=== PATIENT | female | born 1960 | race Caucasian/White ===

== ENCOUNTER 2025-10-05 12:31 | Outpatient (REF) | payer MEDICARE, MEDICAID, SELFPAY ==
--- OUTSIDE RECORDS SUMMARY | 2024-05-13 05:00 | XMS_ITS ---
Author Organization [facility] [place] Address [address] [place] [address] Care Team Providers Care Dining Room Host Name Role Phone Steve Dewey DO Primary Care Provider Ashia Duarte Unavailable [phone] [facility] f/u Encounters Encounter Location Date Provider Diagnosis [facility] [address] [place] [address] 05/13/2024 Ashia Robison Plan Of Treatment No Information Progress Notes * Beulah EWING ADOB:1960 (65 yo F)Acc No.[id number]:05/13/2024 UNLOCKED PROGRESS NOTE Progress Note Patient: Brigida MURDOCKAna Beulah Love :?Ashia Robison NPDOB:1960???Age:63 Y ???Sex:FemaleDate:05/13/2024hone:[phone]: [address], [place], [place]Ash:Steve Dewey DO Subjective: * Chief Complaints: * [address] [facility] f/u. * Medical History: Objective: * Vitals: Assessment: Plan: * Treatment: * * Electronic signature of Ashia Robison APRN NP-C, [id number] on 10/05/2025 at 12:37 PM ESTSign off status: PendingVisit Status:?CANC (Cancelled) * Provider: Brigida Robison NP Date: 0 05/13/2024 Generated for Printing/Faxing/eTransmitting on:?10/05/2025 12:37 PM EST
--- OUTSIDE RECORDS SUMMARY | 2025-03-28 19:00 | XMS_ITS | Continuity of Care Document ---
Author Organization [facility] Address [address] [facility] [place] [address] Phone Care Team Providers Care Product Applications Scientist Name Role Phone Thad Cabral Unavailable Unavailable Procedures Procedure Date SUBSEQUENT HOSPITAL CARE SUBSEQUENT HOSPITAL CARE SUBSEQUENT HOSPITAL CARE Advance Directives Directive Yes / No Effective Date File Name No Information Encounters Encounter Description Practice Location Reason(s) For Visit Diagnoses Date Provider Encounter Disposition SUBSEQUENT HOSPITAL CARE [facility], [address] [place] [address] B, [place], [place], [id number], [place] tel:[phone] [facility] IP No Information 5 Marianna Oneil. [address] [facility] [address], [place], [place], [id number], [place]. tel:[phone] [address] [place] [address] [facility], [address] [place] [address] B, [place], [place], [id number], [place] tel:[phone] [facility] IP No Information 5 Catrina Shea. [address] [facility] [address], [place], [place], [id number], [place]. tel:[phone] [address] [place] [address] [facility], [address] [place] [address] B, [place], [place], [id number], [place] tel:[phone] [facility] IP No Information 5 Yves GONGORA Blaine. [address] [facility], [address], [place], [place], [id number], [place]. tel:[phone] [address] [place] [address] [facility], [address] [place] [address] B, [place], [id number], [place] tel:[phone] [place] No Information Mar-0 5 Friend DIRECTOR DIGITAL STRATEGY-YARD SPECIALIST Sonia. [address] [facility] [address], [place], [place], [address], [place]. tel:[phone] [facility], [address] [place] [address] [address], [place], [place], [address], [place] tel:[phone] [facility] IP No Information Clement-0 5 Marylou Alaniz. [address] [facility] [address], [place], [place], [address], [place]. tel:[phone] [address] [place] [address], [address] [place] [address] [address], [place], [place], [address], [place] tel:[phone] [facility] IP No Information 0 5 Yves Valladares. [address] [facility], [address], [place], [place], [address], [place]. tel:[phone] [address] [place] [address], [address] [place] [address] [address], [place], [place], [address], [place] tel:[phone] [facility] IP No Information 0 5 Marylou Alaniz. [address] [facility] [address], [place], [place], [address], [place]. tel:[phone] [address] [place] [address], [address] [place] [address] [address], [place], [place], [address], [place] tel:[phone] [place] No Information 5 Friend DIRECTOR DIGITAL STRATEGY-YARD SPECIALIST Sonia. [address] [facility] [address], [place], [place], [address], [place]. tel:[phone] [address] [place] [address], [address] [place] [address] [address], [place], [place], [address], [place] tel:[phone] [place] No Information 5 Friend DIRECTOR DIGITAL STRATEGY-YARD SPECIALIST Sonia. [address] [facility] [address], [place], [place], [address], [place]. tel:[phone] [address] [place] [address], [address] [place] [address] [address], [place], [place], [address], [place] tel:[phone] [place] No Information May-1 5-202 5 Friend DIRECTOR DIGITAL STRATEGY-YARD SPECIALIST Sonia. [address], [place], [place], [address], [place]. tel:[phone] [address] [place] [address], [address] [place] [address] [address], [place], [place], [address], [place] tel:[phone] [place] No Information May-1 3-202 5 Katrina Jin. [address], [address], [place], [place], [address], [place]. tel:[phone] [address] [place] [address], [address] [place] [address] [address], [place], [place], [address], [place] tel:[phone] [place] No Information May-0 8- 5 Friend DIRECTOR DIGITAL STRATEGY-YARD SPECIALIST Sonia. [address], [place], [place], [address], [place]. tel:[phone] [address] [place] [address], [address] [place] [address] [address], [place], [address], [place] tel:[phone] [facility] No Information May-0 2-202 5 Luisito Damico. [address], [address], [place], [place], [address], [place]. tel:[phone] [address] [place] [address], [address] [place] [address] [address], [place], [address], [place] tel:[phone] [place] No Information May-0 1-202 5 Friend DIRECTOR DIGITAL STRATEGY-YARD SPECIALIST Sonia. [address], [place], [place], [address], [place]. tel:[phone] [address] [place] [address], [address] [place] [address] [address], [place], [place], [address], [place] tel:[phone] [place] No Information Apr-2 2-202 5 Katrina Jin. [address], [address], [place], [place], [address], [place]. tel:[phone] [address] [place] [address], [address] [place] [address] [address], [place], [address], [place] tel:[phone] [facility] IP No Information Apr-1 7-202 5 Marianna Oneil. [address] [facility], [address], [place], [address], [place]. tel:[phone] [address] [place] [address], [address] [place] [address] [address], [place], [place], [address], [place] tel:[phone] [facility] IP No Information Jan-1 6- 5 Yves Valladares. [address] [facility], [address], [place], [place], [address], [place]. tel:[phone] [address] [place] [address], [address] [place] [address] [address], [place], [place], [address], [place] tel:[phone] [place] No Information Apr-0 8-202 5 Katrina Jin. [address] [facility] [address], [place], [place], [address], [place]. tel:[phone] [address] [place] [address] [employer] [facility], [address] [place] [address] [address], [place], [place], [address], [place] tel:[phone] [place] No Information Apr-0 3-202 5 Friend DIRECTOR DIGITAL STRATEGY-YARD SPECIALIST Sonia. [address] [facility] [address], [place], [place], [address], [place]. tel:[phone] [address] [place] [address], [address] [place] [address] [address], [place], [place], [address], [place] tel:[phone] [place] No Information Mar-2 7-202 5 Friend DIRECTOR DIGITAL STRATEGY-YARD SPECIALIST Sonia. [address] [facility] [address], [place], [place], [address], [place]. tel:[phone] [address] [place] [address], [address] [place] [address] [address], [place], [address], [place] tel:[phone] [place] No Information Mar-2 0-202 5 Friend DIRECTOR DIGITAL STRATEGY-YARD SPECIALIST Sonia. [address], [place], [place], [address], [place]. tel:[phone] [address] [place] [address], [address] [place] [address] [address], [place], [place], [address], [place] tel:[phone] [place] No Information Mar-1 3-202 5 Friend DIRECTOR DIGITAL STRATEGY-YARD SPECIALIST Sonia. [address], [place], [place], [address], [place]. tel:[phone] [address] [place] [address], [address] [place] [address] [address], [place], [place], [address], [place] tel:[phone] [place] No Information Mar-1 1- 5 Katrina Jin. [facility] [address], [place], [place], [address], [place]. tel:[phone] [address] [place] [address] [facility], [address] [place] [address] [address], [place], [address], [place] tel:[phone] [place] No Information Mar-0 6-202 5 Friend DIRECTOR DIGITAL STRATEGY-YARD SPECIALIST Sonia. [address], [place], [place], [address], [place]. tel:[phone] [address] [place] [address] [employer] [facility], [address] [place] [address] [address], [place], [place], [address], [place] tel:[phone] [place] No Information Feb-2 7- 5 Friend DIRECTOR DIGITAL STRATEGY-YARD SPECIALIST Sonia. [address], [place], [place], [address], [place]. tel:[phone] [address] [place] [address], [address] [place] [address] [address], [place], [place], [address], [place] tel:[phone] [place] No Information Feb-2 0-202 5 Friend DIRECTOR DIGITAL STRATEGY-YARD SPECIALIST Sonia. [address], [place], [place], [address], [place]. tel:[phone] [address] [place] [address], [address] [place] [address] B, [place], [address], [place] tel:[phone] [place] No Information 5 Friend DIRECTOR DIGITAL STRATEGY-YARD SPECIALIST Sonia. [address], [place], [address], [place]. tel:[phone] [address] [place] [address], [address] [place] [address] [address], [place], [address], [place] tel:[phone] [place] No Information 5 Friend DIRECTOR DIGITAL STRATEGY-YARD SPECIALIST Sonia. [address], [place], [address], [place]. tel:[phone] [address] [place] [address] [facility], [address] [place] [address] [address], [place], [address], [place] tel:[phone] [place] No Information 5 Friend DIRECTOR DIGITAL STRATEGY-YARD SPECIALIST Sonia. [address], [place], [place], [address], [place]. tel:[phone] [address] [place] [address] [facility], [address] [place] [address] [address], [place], [address], [place] tel:[phone] [place] No Information 5 Friend DIRECTOR DIGITAL STRATEGY-YARD SPECIALIST Sonia. [address] [facility] [address], [place], [address], [place]. tel:[phone] [address] [place] [address] [facility], [address] [place] [address] [address], [place], [place], [address], [place] tel:[phone] [place] No Information 5 Katrina Jin. [address] [facility], [address], [place], [place], [address], [place]. tel:[phone] [address] [place] [address] [facility], [address] [place] [address] [address], [place], [place], [address], [place] tel:[phone] [place] No Information 5 Friend DIRECTOR DIGITAL STRATEGY-YARD SPECIALIST Sonia. [address], [place], [place], [address], [place]. tel:[phone] [address] [place] [address], [address] [place] [address] [address], [place], [place], [address], [place] tel:[phone] [place] No Information Dec-2 6-202 4 Friend DIRECTOR DIGITAL STRATEGY-YARD SPECIALIST Sonia. [address], [place], [place], [address], [place]. tel:[phone] [address] [place] [address], [address] [place] [address] [address], [place], [place], [address], [place] tel:[phone] [place] No Information Dec-1 9-202 4 Friend DIRECTOR DIGITAL STRATEGY-YARD SPECIALIST Sonia. [address], [place], [place], [address], [place]. tel:[phone] [address] [place] [address], [address] [place] [address] [address], [place], [place], [address], [place] tel:[phone] [place] No Information Dec-1 2-202 4 Friend DIRECTOR DIGITAL STRATEGY-YARD SPECIALIST Sonia. [address], [place], [place], [address], [place]. tel:[phone] [address] [place] [address] [employer] [facility], [address] [place] [address] [address], [place], [place], [address], [place] tel:[phone] [place] No Information Dec-1 0-202 4 Katrina Jin. [facility], [address], [place], [place], [address], [place]. tel:[phone] [address] [place] [address] [facility], [address] [place] [address] [address], [place], [place], [address], [place] tel:[phone] [place] No Information Dec-0 5-202 4 Friend DIRECTOR DIGITAL STRATEGY-YARD SPECIALIST Sonia. [address], [place], [place], [address], [place]. tel:[phone] [address] [place] [address], [address] [place] [address] [address], [place], [place], [address], [place] tel:[phone] [place] No Information Nov-2 5-202 4 Friend DIRECTOR DIGITAL STRATEGY-YARD SPECIALIST Sonia. [address] [address], [place], [place], [address], [place]. tel:[phone] [address] [place] [address], [address] [place] [address] [address], [place], [place], [address], [place] tel:[phone] Patrice D[place]ior No Information Nov-0 7-202 4 Friend DIRECTOR DIGITAL STRATEGY-YARD SPECIALIST Sonia. [address] [address], [place], [place], [address], [place]. tel:[phone] [address] [place] [address], [address] [place] [address] [address] , [place], [place], [address], [place] tel:[phone] Pat[place] Doshior Skilled No Information Nov-0 5-202 4 Friend DIRECTOR DIGITAL STRATEGY-YARD SPECIALIST Sonia. [address] [address], [place], [place], [address], [place]. tel:[phone] [address] [place] [address], [address] [place] [address] [address], [place], [place], [address], [place] tel:[phone] Patrice Meade Skilled No Information Nov-0 3-202 4 Friend DIRECTOR DIGITAL STRATEGY-YARD SPECIALIST Sonia. [address] [address], [place], [place], [address], [place]. tel:[phone] [facility] Family History Family Member Type Diagnosis Age At Onset No Information Payers Payer name Insurance type Identifiers Authorization(s) Com ments Medicare MB iber ID: [id number] Name: Coverage Status Eligibility Check on: UnknownRelationship to Subscriber: selfPayer Address: [address] , [place], [place], [id number] Phone: [phone] Sloane CI er ID: [id number] Name: Coverage Status Eligibility Check on: UnknownRelationship to Subscriber: selfPayer Address: [address], [place], [place], [id number], [place]ayer Phone: [phone] Medicaid MC riber ID: [id number] Name: Coverage Status Eligibility Check on: UnknownRelationship to Subscriber: selfPayer Address: [facility] [address], [place], [place], [id number] Phone: Social History Type Description Quantity Date Captured Comments Sex Female Smoking Status No Information Current Gender Female (finding) Chief Complaint And Reason For Visit No Information History Of Present Illness Encounter Date Complaint History Of Prese nt Illness No Information Functional Status Date Description Comments No Information Instructions Date Instruction Additional Infor mation No Information Assessments Type Assessment Date No Information
--- OUTSIDE RECORDS SUMMARY | 2025-05-19 09:00 | XMS_ITS ---
Author Organization [facility] [place] Address [address] [place] [address] Care Team Providers Care Delimber Operator Name Role Phone Steve Dewey DO Primary Care Provider Dejan Blanton Unavailable [phone] REASON FOR VISIT Acute Resp Failure Encounters Encounter Location Date Provider Diagnosis [facility] [address] [place] [address] 05/19/2025 Dejan Bay Plan Of Treatment No Information Progress Notes * Beulah EWING ADOB:1960 (65 yo F)Acc No.[id number]:05/19/2025 UNLOCKED PROGRESS NOTE Progress Note Patient: Beulah PAVON :?Dejan Bay NPDOB:1960???Age:64 Y ???Sex:FemaleDate:05/19/2025Phone:[phone]: [address], [place], [place]Kov:Steve Dewey DO Subjective: * Chief Complaints: * 1 . Acute Resp Failure. * Medical History: Objective: * Vitals: Assessment: Plan: * Treatment: * * Electronic signature of Dejan Bay NP, SANITATION INSPECTOR.TECHNICAL SUPPORT PROFESSIONAL.[id number] on 10/05/2025 at 12:38 PM ESTSign off status: PendingVisit Status:?N/S N/C (No Show/No Charge) * Provider: Beth Bay NP Date: 0 05/19/2025 Generated for Printing/Faxing/eTransmitting on:?10/05/2025 12:38 PM EST
--- OUTSIDE RECORDS SUMMARY | 2025-10-05 12:38 | XMS_ITS | Patient Health Record ---
Author Organization [facility] Address [address] [facility] [address] [place] [address] Care Team Providers Care Maintenance Chief Name Role Phone JUAN MANUEL YOO Unavailable [phone] JOSE ROCK Unavailable [phone] Reason For Referral No Information Problems Problem Type SNOMED Code ICD Code Onset Dates Problem Status W/U Status Risk Notes Problem Obstructive sleep ap skylar syndrome (disorder) (72214427) Obstructive sleep apnea (adult) (pediatric) (G47.33) ActiveconfirmedProblemChronic obstructive pulmonary disease (04571525)Chronic obstructive pulmonary disease, unspecified (J44.9)ActiveconfirmedProblemChronic respiratory failure (88809014)Chronic respiratory failure with hypoxia (J96.11) ActiveconfirmedProblemChronic respiratory failure (89560008)Chronic respiratory failure with hypercapnia (J96.12)ActiveconfirmedProblemExtreme obesity with alveolar hypoventilation (845791872)Morbid obesity with alveolar hypoventilation (E66.2)Activeconfirmed Encounters Encounter Location Date Provider Diagnosis [place] [facility] [address] [place] [id number] 12/24/2024 JOSE ROCK Chronic respiratory failure with hypoxia J96.11 ; Chronic respiratory failure with hypercapnia J96.12 ; Obstructive sleep apnea (adult) (pediatric) G47.33 ; Morbid obesity with alveolar hypoventilation E66.2 and Chronic obstructive pulmonary disease, unspecified J44.9 [place] [facility] [address] [place] [id number] 01/01/2025 JOSE ROCK Chronic respiratory failure with hypoxia J96.11 ; Chronic respiratory failure with hypercapnia J96.12 ; Obstructive sleep apnea (adult) (pediatric) G47.33 ; Morbid obesity with alveolar hypoventilation E66.2 and Chronic obstructive pulmonary disease, unspecified J44.9 [place] [facility] [address] [place], [place] [id number] 01/02/2025 JUAN MANUEL FREDO Chronic respiratory failure with hypoxia J96.11 ; Chronic respiratory failure with hypercapnia J96.12 ; Obstructive sleep apnea (adult) (pediatric) G47.33 ; Morbid obesity with alveolar hypoventilation E66.2 and Chronic obstructive pulmonary disease, unspecified J44.9 [place] [facility] [address] [place], [place] [id number] 01/07/2025 JOSE PRANAV Chronic respiratory failure with hypoxia J96.11 ; Chronic respiratory failure with hypercapnia J96.12 ; Obstructive sleep apnea (adult) (pediatric) G47.33 ; Morbid obesity with alveolar hypoventilation E66.2 and Chronic obstructive pulmonary disease, unspecified J44.9 [place] [facility] [address] [place] [id number] 01/14/2025 JUAN MANUEL FREDO Chronic respiratory failure with hypoxia J96.11 ; Chronic respiratory failure with hypercapnia J96.12 ; Obstructive sleep apnea (adult) (pediatric) G47.33 ; Morbid obesity with alveolar hypoventilation E66.2 and Chronic obstructive pulmonary disease, unspecified J44.9 [place] [facility] [address] [place] [id number] 01/21/2025 JOSE PRANAV Chronic respiratory failure with hypoxia J96.11 ; Chronic respiratory failure with hypercapnia J96.12 ; Obstructive sleep apnea (adult) (pediatric) G47.33 ; Morbid obesity with alveolar hypoventilation E66.2 and Chronic obstructive pulmonary disease, unspecified J44.9 [place] [facility] [address] [place] [id number] 01/28/2025 JOSE PRANAV Chronic respiratory failure with hypoxia J96.11 ; Chronic respiratory failure with hypercapnia J96.12 ; Obstructive sleep apnea (adult) (pediatric) G47.33 ; Morbid obesity with alveolar hypoventilation E66.2 and Chronic obstructive pulmonary disease, unspecified J44.9 [place] [facility] [address] [place], [place] [id number] 01/30/2025 JUAN MANUEL FREDO Chronic respiratory failure with hypoxia J96.11 ; Chronic respiratory failure with hypercapnia J96.12 ; Obstructive sleep apnea (adult) (pediatric) G47.33 ; Morbid obesity with alveolar hypoventilation E66.2 and Chronic obstructive pulmonary disease, unspecified J44.9 [place] [facility] [address] [place] [id number] 02/05/2025 JUAN MANUEL FREDO Chronic respiratory failure with hypoxia J96.11 ; Chronic respiratory failure with hypercapnia J96.12 ; Obstructive sleep apnea (adult) (pediatric) G47.33 ; Morbid obesity with alveolar hypoventilation E66.2 and Chronic obstructive pulmonary disease, unspecified J44.9 [place] [facility] [address] [place] [id number] 02/21/2025 JOSE PRANAV Chronic respiratory failure with hypoxia J96.11 ; Chronic respiratory failure with hypercapnia J96.12 ; Obstructive sleep apnea (adult) (pediatric) G47.33 ; Morbid obesity with alveolar hypoventilation E66.2 and Chronic obstructive pulmonary disease, unspecified J44.9 [place] [facility] [address] [place], [place] [id number] 02/24/2025 JUAN MANUEL FREDO Chronic respiratory failure with hypoxia J96.11 ; Chronic respiratory failure with hypercapnia J96.12 ; Obstructive sleep apnea (adult) (pediatric) G47.33 ; Morbid obesity with alveolar hypoventilation E66.2 and Chronic obstructive pulmonary disease, unspecified J44.9 [place] [facility] [address] [place], [place] [id number] 02/28/2025 JOSE PRANAV Chronic respiratory failure with hypoxia J96.11 ; Chronic respiratory failure with hypercapnia J96.12 ; Obstructive sleep apnea (adult) (pediatric) G47.33 ; Morbid obesity with alveolar hypoventilation E66.2 and Chronic obstructive pulmonary disease, unspecified J44.9 [place] [facility] [address] [place] [id number] 03/04/2025 JOSE PRANAV Chronic respiratory failure with hypoxia J96.11 ; Chronic respiratory failure with hypercapnia J96.12 ; Obstructive sleep apnea (adult) (pediatric) G47.33 ; Morbid obesity with alveolar hypoventilation E66.2 and Chronic obstructive pulmonary disease, unspecified J44.9 [place] [facility] [address] [place] [id number] 03/24/2025 JOSE PRANAV Chronic respiratory failure with hypoxia J96.11 ; Chronic respiratory failure with hypercapnia J96.12 ; Obstructive sleep apnea (adult) (pediatric) G47.33 ; Morbid obesity with alveolar hypoventilation E66.2 and Chronic obstructive pulmonary disease, unspecified J44.9 Assessments Encounter Date Diagnosis (ICD Code) Assessment Notes Treatment Notes Treatment Clinical Notes Section Notes 12/24/2024 Chronic respiratory failure with hypoxia (ICD-10 - J96.11) 12/24/2024hronic respiratory failure with hypercapnia (ICD-10 - J96.12) 5Chronic respiratory failure with hypoxia (ICD-10 - J96.11)01/02/2025 Chronic respiratory failure with hypoxia (ICD-10 - J96.11)01/07/2025hronic respiratory failure with hypoxia (ICD-10 - J96.11)5Chronic respiratory failure with hypoxia (ICD-10 - J96.11)5Chronic respiratory failure with hypoxia (ICD-10 - J96.11)5Chronic respiratory failure with hypoxia (ICD-10 - J96.11)5Chronic respiratory failure with hypoxia (ICD-10 - J96.11)5Chronic respiratory failure with hypoxia (ICD-10 - J96.11) 02/21/2025hronic respiratory failure with hypoxia (ICD-10 - J96.11)02/24/2025 Chronic respiratory failure with hypoxia (ICD-10 - J96.11)02/28/2025hronic respiratory failure with hypoxia (ICD-10 - J96.11)5Chronic respiratory failure with hypoxia (ICD-10 - J96.11)5Chronic respiratory failure with hypoxia (ICD-10 - J96.11)5Chronic respiratory failure with hypercapnia (ICD-10 - J96.12)03/04/2025hronic respiratory failure with hypercapnia (ICD-10 - J96.12)5Chronic respiratory failure with hypercapnia (ICD-10 - J96.12)5Chronic respiratory failure with hypercapnia (ICD-10 - J96.12) 5Chronic respiratory failure with hypercapnia (ICD-10 - J96.12) 5Chronic respiratory failure with hypercapnia (ICD-10 - J96.12) 01/30/2025hronic respiratory failure with hypercapnia (ICD-10 - J96.12) 01/28/2025hronic respiratory failure with hypercapnia (ICD-10 - J96.12) 01/21/2025hronic respiratory failure with hypercapnia (ICD-10 - J96.12) 01/14/2025hronic respiratory failure with hypercapnia (ICD-10 - J96.12) 5Chronic respiratory failure with hypercapnia (ICD-10 - J96.12) 01/02/2025hronic respiratory failure with hypercapnia (ICD-10 - J96.12) 5Chronic respiratory failure with hypercapnia (ICD-10 - J96.12) 12/24/2024Obstructive sleep apnea (adult) (pediatric) (ICD-10 - G47.33) 12/24/2024Morbid obesity with alveolar hypoventilation (ICD-10 - E66.2) 01/01/2025Obstructive sleep apnea (adult) (pediatric) (ICD-10 - G47.33) 01/02/2025Obstructive sleep apnea (adult) (pediatric) (ICD-10 - G47.33) 01/07/2025Obstructive sleep apnea (adult) (pediatric) (ICD-10 - G47.33) 01/14/2025Obstructive sleep apnea (adult) (pediatric) (ICD-10 - G47.33) 01/21/2025Obstructive sleep apnea (adult) (pediatric) (ICD-10 - G47.33) 01/28/2025Obstructive sleep apnea (adult) (pediatric) (ICD-10 - G47.33) 01/30/2025Obstructive sleep apnea (adult) (pediatric) (ICD-10 - G47.33) 02/05/2025Obstructive sleep apnea (adult) (pediatric) (ICD-10 - G47.33) 02/21/2025Obstructive sleep apnea (adult) (pediatric) (ICD-10 - G47.33) 02/24/2025Obstructive sleep apnea (adult) (pediatric) (ICD-10 - G47.33) 02/28/2025Obstructive sleep apnea (adult) (pediatric) (ICD-10 - G47.33) 03/04/2025Obstructive sleep apnea (adult) (pediatric) (ICD-10 - G47.33) 03/24/2025Obstructive sleep apnea (adult) (pediatric) (ICD-10 - G47.33) 03/24/2025Morbid obesity with alveolar hypoventilation (ICD-10 - E66.2) 03/04/2025Morbid obesity with alveolar hypoventilation (ICD-10 - E66.2) 02/28/2025Morbid obesity with alveolar hypoventilation (ICD-10 - E66.2) 02/24/2025Morbid obesity with alveolar hypoventilation (ICD-10 - E66.2) 02/21/2025Morbid obesity with alveolar hypoventilation (ICD-10 - E66.2) 02/05/2025Morbid obesity with alveolar hypoventilation (ICD-10 - E66.2) 01/30/2025Morbid obesity with alveolar hypoventilation (ICD-10 - E66.2) 01/28/2025Morbid obesity with alveolar hypoventilation (ICD-10 - E66.2) 01/21/2025Morbid obesity with alveolar hypoventilation (ICD-10 - E66.2) 01/14/2025Morbid obesity with alveolar hypoventilation (ICD-10 - E66.2) 01/07/2025Morbid obesity with alveolar hypoventilation (ICD-10 - E66.2) 01/02/2025Morbid obesity with alveolar hypoventilation (ICD-10 - E66.2) 12/24/2024hronic obstructive pulmonary disease, unspecified (ICD-10 - J44.9) 01/01/2025Morbid obesity with alveolar hypoventilation (ICD-10 - E66.2) 01/01/2025hronic obstructive pulmonary disease, unspecified (ICD-10 - J44.9) 01/02/2025hronic obstructive pulmonary disease, unspecified (ICD-10 - J44.9) 03/25/2025Chronic obstructive pulmonary disease, unspecified (ICD-10 - J44.9) 5Chronic obstructive pulmonary disease, unspecified (ICD-10 - J44.9) 5Chronic obstructive pulmonary disease, unspecified (ICD-10 - J44.9) 5Chronic obstructive pulmonary disease, unspecified (ICD-10 - J44.9) 5Chronic obstructive pulmonary disease, unspecified (ICD-10 - J44.9) 5Chronic obstructive pulmonary disease, unspecified (ICD-10 - J44.9) 5Chronic obstructive pulmonary disease, unspecified (ICD-10 - J44.9) 5Chronic obstructive pulmonary disease, unspecified (ICD-10 - J44.9) 5Chronic obstructive pulmonary disease, unspecified (ICD-10 - J44.9) 5Chronic obstructive pulmonary disease, unspecified (ICD-10 - J44.9) 5Chronic obstructive pulmonary disease, unspecified (ICD-10 - J44.9) 12/24/2024OtherSasha in collaboration and discussed plan of care with Dr. Juan Manuel Yoo01/01/2025OtherSasha in collaboration and discussed plan of care with Dr. Juan Manuel Yoo01/07/2025Elin in collaboration and discussed plan of care with Dr. Juan Manuel Yoo01/21/2025Elin in collaboration and discussed plan of care with Dr. Juan Manuel Yoo01/28/2025Elin in collaboration and discussed plan of care with Dr. Juan Manuel Yoo02/21/2025Elin in collaboration and discussed plan of care with Dr. Juan Manuel Yoo02/28/2025Elin in collaboration and discussed plan of care with Dr. Juan Manuel Yoo03/04/2025Elin in collaboration and discussed plan of care with Dr. Juan Manuel Yoo03/24/2025Elin in collaboration and discussed plan of care with Dr. Juan Manuel Yoo Plan Of Treatment No Information Insurance Providers Payer Name Payer Address Payer Phone Subscriber Number Group Number Insured Name Patient Relationship to Insured Coverage Start Date Coverage End Date Medicare [place] [place] [address] [place] [address] [id number] [place] - patient is the insuredAnthem BCBS of [place]PO [address] [place] [id number], JuliaSelf - patient is the [place]icaid [place] [phone] [id number], JuliaSelf - patient is the insured
--- OUTSIDE RECORDS SUMMARY | 2025-10-05 12:39 | XMS_ITS | Patient Health Record ---
Author Organization [facility] [place] Address [address] [place] [address] Care Team Providers Care Document Control Specialist Name Role Phone Zuleima Steve SHAVER Primary Care Provider Dejan Blanton Unavailable [phone] Allergies Allergen (clinical drug ingredient) Drug/Non Drug Allergy documented on EMR Reaction Allergy Type Onset Date Status PenicillinUnknownDrug AllergyActive Results Component Value Reference Range Notes XR CHEST PORTABLE Reviewed date:04/09/2025 06:50:05 AM Interpretation: Performing Lab: Notes/Report: EXAMINATION: Performed at: [facility] [address] [facility] [facility] [id number] [facility] Reviewed date:10/22/2024 10:12:04 PM Interpretation: Performing Lab: Notes/Report: Radiology exam is complete. No Radiologist dictation. Please follow up with ordering provider. Performed at: [address] [id number] Reason For Referral Diagnosis 1 Urinary tract infect ion, site not specified (N39.0) Diagnosis 2 Urinary tract infect ion (N39.0) Referring Provider First Name Davin Referring Provider Last Name Mak blank Referring Provider Speciality Family Med frances Referred Organization [facility] Referred Provider Cale Leon Referred Address [address],[place], [place],[address], Referred Provider Specialty Urology General Notes Carolin Koch 04/2025 11:54:24 AM >left Zee davidson Rylie 11/14/2024 03:19:16 PM >final msg Referral Priority Routine Medications Medication SIG (Take, Route, Frequency, Duration) Notes Start Date End Date Status Docusate Sodium 100 MG 1 capsule as need ed Orally Once a day; Duration: 30 day(s) ActiveSertraline HCl 150 MG3 tablets Orally DailyActiveBaclofen 20 MGtake 1 tablet by mouth every 6 hours Orally QIDActiveoxyBUTYnin Chloride 5 MG1 tablet Orally TIDActiveAcetaminophen Extra Strength 500 MG1 tablet as needed Orally every 6 hrsActiveOndansetron 4 MG1 tablet on the tongue and allow to dissolve as needed Orally every 4 hrsActiveNystatin 448206 UNIT/GM1 application Externally Twice a dayActiveIsopto TearsActiveGabapentin 300 MG1 capsule oral QID; Duration: 30 ruek838 mg 2 BIDActiveFerrous Sulfate 325 MGas directed Orally ActiveFamotidine 20 MG1 tablet at bedtime as needed Orally Once a day; Duration: 30 day(s)ActiveWheelchair -power wheelchair - Daily; Duration: 365 daysMS with gait disability, due to leg weakness, need to be able to elevate legs daily. 01/24/2017ActiveMultivitamin -1 tablet Orally Once a day; Duration: 30 day(s) ActiveMotorized Scooter -as directed Dx: MS with gait disability due to leg weakness; need to be able to elevate legs Daily;Duration: 365 days01/18/2017 ActiveLipitor 40 MG1 tablet Orally Once a day; Duration: 30 day(s)Active Social History Tobacco Use: Social History Observation Description Date Details (start date - stop date) Never Smoker NA - NA Tobacco Use/Smoking Question Answer Notes Patient is a nonsmoker Section Notes: Resides at home with aide as sistance 3x per day Resides at home with aide as sistance 3x per day Resides at home with aide as sistance 3x per day Resides at home with aide as sistance 3x per day Problems Problem Type SNOMED Code ICD Code Onset Dates Problem Status W/U Status Risk Notes Problem Acute on chronic hyp oxemic and hypercapnic respiratory failure (disorder) (94836232726372) Acute and chronic respiratory failure with hypercapnia (J96.22) ActiveconfirmedProblemFunctional quadriplegia (769139043309982)Functional quadriplegia (R53.2)ActiveconfirmedProblemAtrial flutter (2687359)Atrial flutter (I48.92)ActiveconfirmedProblemHyperlipidemia (23834705)Hyperlipidemia (E78.5) ActiveconfirmedProblemMorbid obesity (646112704)Morbid obesity (E66.01)Active confirmedProblemObesity (963538872)Obesity (E66.9)ActiveconfirmedProblemCoronary artery disease (91205318)CAD (coronary artery disease) (I25.10)Activeconfirmed ProblemHypertension (65914328)HTN (hypertension) (I10)ActiveconfirmedProblem Hypothyroid (35924898)Hypothyroid (E03.9)ActiveconfirmedProblemEssential hypertension (13021756)Essential hypertension (I10)ActiveconfirmedProblem Depression (310535739)Depression (F32.9)ActiveconfirmedProblemUrinary incontinence (458956126)Urinary incontinence (R32)ActiveconfirmedProblem Diverticular disease of colon (469710753)Diverticulosis (K57.90)Activeconfirmed ProblemNeurogenic bladder (877868111)Neurogenic bladder (N31.9)Activeconfirmed ProblemNeuropathy (562385974)Neuropathy (G62.9)ActiveconfirmedProblem Hyperlipidaemia (39213825)HLD (hyperlipidemia) (E78.5)ActiveconfirmedProblem Obesity (393828176)Obesity, unspecified obesity severity, unspecified obesity type (E66.9)ActiveconfirmedProblemConstipation (36324362)Constipation (K59.00) ActiveconfirmedProblemMultiple sclerosis (17932994)MS (multiple sclerosis) (G35) ActiveconfirmedProblemOsteoarthritis of knee (299946947)Osteoarthritis of left knee (M17.9)ActiveconfirmedProblemAbnormal gait (22088554)Gait disturbance (R26.9)ActiveconfirmedProblemSeizure disorder (218281869)Seizure disorder (G40.909)ActiveconfirmedProblemMuscle spasm (03031866)Muscle spasm (M62.838) ActiveconfirmedProblemIron deficiency anemia (45939755)MARIA ELENA (iron deficiency anemia) (D50.9)ActiveconfirmedProblemMethicillin resistant Staphylococcus aureus (322271457)MRSA (methicillin resistant Staphylococcus aureus) (A49.02)Active confirmedProblemSuprapubic catheter (194442598)Suprapubic catheter (Z93.59) ActiveconfirmedProblemMajor depressive disorder (673447030)Major depressive disorder (F32.9)ActiveconfirmedProblemPulmonary hypertension (10311486)Pulmonary HTN (I27.20)ActiveconfirmedProblemNeurogenic dysfunction of the urinary bladder (715256059)Acontractile bladder (N31.9)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 Plan Of Treatment Pending Test Test Name Order Date CMP (COMPLETE METABOLIC PANEL) 8 CMP (COMPLETE METABOLIC PANEL) 9 CBC NO DIFF 01/10/2018 CBC WITH DIFF (EXP 08/2025) 10/18/2018 UA (REFLEX URINALYSIS TO CULTURE) 2018 UA (REFLEX URINALYSIS TO CULTURE) 2018 VITAMIN D, 25 LEVEL (TOTAL) 01/10/2018 MRI Brain w/wo contrast * 01/10/2018 MRI Brain w/wo contrast * 08/07/2018 T4 FREE and TSH 01/10/2018 Urinalysis Microscopic 12/04/2021 XR CHEST PORTABLE 05/01/2024 XR CHEST PORTABLE 05/01/2024 XR CHEST PORTABLE 05/02/2024 XR CHEST PORTABLE 05/03/2024 XR CHEST PORTABLE 05/04/2024 XR CHEST PORTABLE 05/05/2024 CT ABDOMEN PELVIS WO CONTRAST 05/01/2024 Insurance Providers Payer Name Payer Address Payer Phone Subscriber Number Group Number Insured Name Patient Relationship to Insured Coverage Start Date Coverage End Date [place] [address] [place] [address] [id number] [place] - patient is the [id number] ACC[employer] PPO PLUS LOCAL PLANPO [address] [place] [id number], JuliaSelf - patient is the [id number] 2014[facility] [facility] [address] [facility] [address] [place] [id number], JuliaSelf - patient is the [id number] 2023 Medical (General) History Medical History History ICD Code hypertension MSneurogenic bladder with suprapubic catheterstage III left buttock wound Elevated troponinsSurgical History Surgery Date(Month/Year) Necrotic Tissue Removal 02/14/2018 Colostomy 04/11/2018 hernia 03/2018 Hospitalization History Reason Date(Month/Year) wound sepsis 07/2018 [facility] -03/[facility] Increase pain in wound 10/08/2018 [facility] surgery 10/2018 [facility]ated [facility] 12/07 UTI 01/2022 [facility] 10/2022
[2025-10-05 14:47] LABS: Anion Gap 9.1; Blood Urea Nitrogen 40.0 mg/dL (7.0-18.0); Calcium 8.3 mg/dL (8.5-10.1); Carbon Dioxide 38.3 mmol/L (21.0-32.0); Chloride 103 mmol/L (98-107); Estimated GFR (African America >60 (>=60 mL/min/1.73m^2); Estimated GFR (Non-African Ame 54 (>=60 mL/min/1.73m^2); Glucose 110 mg/dL (74-106); Potassium 4.4 mmol/L (3.5-5.1); Sodium 146 mmol/L (136-145)
== END 2025-10-05 12:32 | disposition home or self-care (01) ==
LOC: LAB 12:31
PROVIDERS: PCP Internal Medicine; Visit Provider Internal Medicine
DX: J96.00 Acute respiratory failure, unspecified whether with hypoxia or hypercapnia (principal); N18.9 Chronic kidney disease, unspecified
CPT/HCPCS: 36415; 80048